=== PATIENT | female | born 1960 | race African-American/Black ===

== ENCOUNTER 2018-02-28 20:55 | Emergency (ER) | payer SELFPAY ==
[2018-02-28 21:02] VITALS: BP 172/99; PULSE 69; TEMP 98.7; BMI 29.5
--- NOTE | 2018-02-28 21:57 | PDOC ---
History of Present Illness - General History Source: Patient Exam Limitations: No Limitations - History of Present Illness Initial Comments: 02/28/18 22:20 The patient is a 57 year old female with a past medical history of acid reflux who presents to the ED with foot swelling since earlier today The patient reports bilateral foot swelling with radiation to her bilateral ankles since this morning. She reports achiness and warmth to her bilateral feet associated with present symptoms. She states she elevated her feet with relief of symptoms. Patient also reports an episode of shortness of breath while walking up the stairs that lasted for several seconds before resolving. Denies shortness of breath at rest. Denies pain or swelling to her proximal legs and knees. Denies chest pain. Denies fever or chills. Denies abdominal pain, nausea, vomiting, or diarrhea. Denies headache. Denies any other symptoms. <Raghav Anguiano - Last Filed: 02/28/18 22:45> <Sharla Burgos - Last Filed: 03/01/18 04:08> - General Chief Complaint: Edema Stated Complaint: BENJY LEG SWELLING Time Seen by Provider: 02/28/18 20:59 Past History <Raghav Anguiano - Last Filed: 02/28/18 22:45> - Past Medical History COPD: No GI Disorders: Yes (GERD) - Surgical History Abdominal Surgery: Yes (hernia) - Suicide/Smoking/Psychosocial Hx Smoking History: Current every day smoker Have you smoked in the past 12 months: Yes Number of Cigarettes Smoked Daily: 10 Information on smoking cessation initiated: Yes 'Breaking Loose' booklet given: 02/28/18 Hx Alcohol Use: No <Sharla Burgos - Last Filed: 03/01/18 04:08> - Past Medical History Allergies/Adverse Reactions: Allergies Allergy/AdvReac Type Severity Reaction Status Date / Time No Known Allergies Allergy Verified 02/28/18 20:56 Home Medications: Ambulatory Orders Omeprazole 40 mg PO DAILY 02/28/18 Review of Systems - Review of Systems Able to Perform ROS?: Yes Comments:: 02/28/18 22:20 CONSTITUTIONAL: Absent: fever, chills, diaphoresis, generalized weakness, malaise, loss of appetite HEENT: Absent: rhinorrhea, nasal congestion, throat pain, throat swelling, difficulty swallowing, mouth swelling, ear pain, eye pain, visual Changes CARDIOVASCULAR: Absent: chest pain, syncope, palpitations, irregular heart rate, lightheadedness , peripheral edema RESPIRATORY: Absent: cough, shortness of breath, dyspnea with exertion, orthopnea, wheezing, stridor, hemoptysis GASTROINTESTINAL: Absent: abdominal pain, abdominal distension, nausea, vomiting, diarrhea, constipation, melena, hematochezia GENITOURINARY: Absent: dysuria, frequency, urgency, hesitancy, hematuria, flank pain, genital pain MUSCULOSKELETAL: + foot swelling, foot pain, warmth to foot SKIN: Absent: rash, itching, pallor HEMATOLOGIC/IMMUNOLOGIC: Absent: easy bleeding, easy bruising, lymphadenopathy, frequent infections ENDOCRINE: Absent: unexplained weight gain, unexplained weight loss, heat intolerance, cold intolerance NEUROLOGIC: Absent: headache, focal weakness or paresthesias, dizziness, unsteady gait, seizure, mental status changes, bladder or bowel incontinence PSYCHIATRIC: Absent: anxiety, depression, suicidal or homicidal ideation, hallucinations. All Other Systems: Reviewed and Negative <Raghav Anguiano - Last Filed: 02/28/18 22:45> *Physical Exam - Vital Signs Last Vital Signs Temp Pulse Resp BP Pulse Ox 98.7 F 69 18 172/99 99 02/28/18 20:55 02/28/18 20:55 02/28/18 20:55 02/28/18 20:55 02/28/18 20:55 - Physical Exam Comments: 02/28/18 22:20 GENERAL: The patient is awake, alert, and fully oriented, in no acute distress. HEAD: Normal with no signs of trauma. EYES: Pupils equal, round and reactive to light, extraocular movements intact, sclera anicteric, conjunctiva clear with no pallor. ENT: Ears normal, nares patent, oropharynx clear without exudates. Moist mucous membranes. NECK: Normal range of motion, supple without lymphadenopathy, JVD, or masses. LUNGS: Breath sounds equal, clear to auscultation bilaterally. No wheeze/ crackles. HEART: Regular rate and rhythm, normal S1 and S2 without murmur or rub. ABDOMEN: Soft/nontender/nondistended. BS wnl. No guarding or rebound. No palpable masses. No hepatosplenomegaly. EXTREMITIES: Normal range of motion, no edema. No clubbing or cyanosis. No cords, erythema, or tenderness. NEUROLOGICAL: Cranial nerves II through XII grossly intact. Normal speech, normal gait. PSYCH: Normal mood, normal affect. SKIN: Warm, Dry, normal turgor, no rashes or lesions noted. <Raghav Anguiano - Last Filed: 02/28/18 22:45> - Vital Signs Last Vital Signs Temp Pulse Resp BP Pulse Ox 98.7 F 69 18 172/99 99 02/28/18 20:55 02/28/18 20:55 02/28/18 20:55 02/28/18 20:55 02/28/18 20:55 <Sharla Burgos - Last Filed: 03/01/18 04:08> Medical Decision Making - Medical Decision Making Documentation has been prepared under my direction and personally reviewed by me in its entirety. I attest that this documented accurately reflects all work, treatment, procedures and medical decision making performed by me. As noted above, this 57-year-old woman with a history of hypertension presents with 1 day history of bilateral foot swelling. 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 Today, she noted foot swelling as well as a small amount of ankle swelling. She denies pain either in the lower leg/calf or in the knee/thigh area. She noted improvement when she elevated her legs; in fact, as she was awaiting evaluation with her legs elevated on stretcher, she had no further edema noted. She denies chest pain or shortness of breath. No history of varicose veins. Physical exam as noted. Because patient has probably normal exam, including bilateral clear lung winter and no evidence of eye lateral lower extremity edema, clinical presentation most consistent with venous insufficiency. Patient asked if compression stockings/support hose would be advisable. Since she had very good response with leg elevation, compression of her legs during the day when she is on her feet may be helpful. Patient has been urged to follow up with her PMD: although she normally does not have shortness of breath or chest pain with exertion, today she had few minute episode of mild shortness of breath while climbing up stairs. She should return to the emergency room if she has persistent leg edema/leg pain or if she experiences persistent shortness of breath/chest pain with exertion <Sharla Burgos - Last Filed: 03/01/18 04:08> *DC/Admit/Observation/Transfer - Attestations Scribe Attestion: 02/28/18 22:20 Documentation prepared by Raghav Anguiano, acting as medical lab specialist for Sharla Burgos MD <Raghav Anguiano - Last Filed: 02/28/18 22:45> <Sharla Burgos - Last Filed: 03/01/18 04:08> Diagnosis at time of Disposition: Edema of lower extremity due to peripheral venous insufficiency - Discharge Dispostion Disposition: HOME Condition at time of disposition: Stable - Referrals Referrals: Memo Romero MD [Primary Care Provider] - - Patient Instructions Printed Discharge Instructions: Chronic Venous Insufficiency Additional Instructions: keep legs elevated as much as possible consider compression hosiery as discussed followup with within the next 5 days Return to ER immediately if you have persistent shortness of breath/chest pain - Post Discharge Activity
== END 2018-02-28 22:25 | disposition home or self-care (01) ==
LOC: FER 20:55
DX: I87.2 Venous insufficiency (chronic) (peripheral) (principal); M79.89 Other specified soft tissue disorders; I10 Essential (primary) hypertension
CPT/HCPCS: 99283-25

== ENCOUNTER 2019-10-22 10:06 | Emergency (ER) | payer OTHER ==
[2019-10-22 10:30] VITALS: BMI 28.3
--- NOTE | 2019-10-22 10:39 | PDOC ---
History of Present Illness - General Chief Complaint: Pain Stated Complaint: ABDOMINAL PAIN Time Seen by Provider: 10/22/19 10:34 History Source: Patient Exam Limitations: No Limitations - History of Present Illness Initial Comments: 10/23/19 07:27 59F PMH GERD presenting with 4 days of episodic right sided abdominal pain that she likens to her GERD symptoms. Coming in today bc sx not resolved but have no worsened. Endorses GE and constipation but making BMs and passing gas. Denies f/c, n/v, cough, congestion, cp/sob. Denies dysuria. Prior midline hernia repair. NKDA. Has been taking black seed bitter herbal supplements for the past month but has stopped. Current smoker; denies etoh. Past History - Past Medical History Allergies/Adverse Reactions: Allergies Allergy/AdvReac Type Severity Reaction Status Date / Time No Known Allergies Allergy Verified 02/28/18 20:56 Home Medications: Ambulatory Orders Omeprazole 40 mg PO DAILY 02/28/18 Ciprofloxacin [Cipro -] 500 mg PO Q12H #20 tablet 10/22/19 metroNIDAZOLE [Flagyl -] 500 mg PO TID #30 tablet 10/22/19 COPD: No GI Disorders: Yes (GERD) - Surgical History Abdominal Surgery: Yes (hernia) - Psycho Social/Smoking Cessation Hx Smoking History: Current every day smoker Have you smoked in the past 12 months: Yes Number of Cigarettes Smoked Daily: 10 Information on smoking cessation initiated: No 'Breaking Loose' booklet given: 02/28/18 Hx Alcohol Use: No Review of Systems - Review of Systems Able to Perform ROS?: Yes Comments:: 10/23/19 07:27 CONSTITUTIONAL: Denies F / C HEENT: Denies sore throat, rhinorrhea RESP: Denies SOB, cough, orthopnea, MICHELLE CARD: Denies chest pain, palpitations GI: Endorses abdominal pain, GE. Denies N / V / D, inability to tolerate PO : Denies dysuria SKIN: Denies rashes NEURO: Denies numbness, tingling, weakness MSK: Denies myalgias *Physical Exam - Vital Signs Last Vital Signs Temp Pulse Resp BP Pulse Ox 98.2 F 93 H 18 140/105 H 98 10/22/19 10:28 10/22/19 10:28 10/22/19 10:28 10/22/19 10:28 10/22/19 10:28 - Physical Exam 10/23/19 07:27 GEN: NAD, comfortable. AAOx3. HEENT: NC/AT, EOMI, PERRL. Normal voice. Supple neck w/ FROM. CV: S1/S2, RRR, no m/r/g LUNG: CTAB, no wheezes, crackles, rales, rhonchi. GI: +TTP RUQ / flank / periumbilical; soft, nd, +BS, no guarding, no rebound. No masses. Neg CVAT b/l. MSK:No LE edema. No obvious deformities of all extremities. SKIN: Warm, dry, no rashes appreciated. PSYCH: very anxious; became tearful at the thought of hospitalization; redirectable NEURO: Moving all extremities well. ED Treatment Course - LABORATORY CBC & Chemistry Diagram: 10/22/19 12:30 10/22/19 12:30 - RADIOLOGY Radiology Studies Ordered: Category Date Time Status CHEST X-RAY PORTABLE* [RAD] Stat Radiology 10/22/19 10:38 Ordered Medical Decision Making - Medical Decision Making 10/22/19 11:02 59F PMH GERD w/ 4 days of intermittent right sided abdominal pain w/ GE. No f/c, n/v. Passing stool and BM. Took a month course of black seed bitters supplement. +TTP RUQ / flank / periumbilical w/o guarding. neg CVAT. DDX likely biliary pathology vs hepatic injury, consider ACS, pancreatitis, appendicitis; less likely obstruction, colitis - advised against taking herbal supplements due to questionable safety profile - CBC, CMP, Cardiac, Lipase - UA, UC - CXR - EKG XX:XX HRXX, sinus rhythm, left axis, narrow QRS, QTc ___, no HAYLIE/D, flat T waves - RUQ US; consider CT A/P pending US results - fluids, tylenol 10/22/19 12:18 per pt daughter, pt had cholecystectomy could not visual GB on bedside US will CT A/P f/u labs 10/22/19 16:16 acute right sided diverticulitis on CT; uncomplicated, will give cipro and flagyl outpatient results d/w patient, amenable to plan. CT report provided DC home w/ abx, PCP f/u, RTP Discharge - Discharge Information Problems reviewed: Yes Clinical Impression/Diagnosis: Diverticulitis Condition: Stable Disposition: HOME - Admission No - Additional Discharge Information Prescriptions: Ciprofloxacin [Cipro -] 500 mg PO Q12H #20 tablet metroNIDAZOLE [Flagyl -] 500 mg PO TID #30 tablet - Follow up/Referral Referrals: Memo Romero MD [Primary Care Provider] - - Patient Discharge Instructions Patient Printed Discharge Instructions: DI for Diverticulitis Additional Instructions: You were found to have diverticulitis, a common infection involving your intestine. You were given your first dose of antibiotics in the Emergency Department. We have sent additional antibiotics to your pharmacy; please pick them up and take as directed. Pay attention to the dosing instructions - Metronidazole is THREE times a day while Ciprofloxacin is TWICE a day. Take tylenol as directed on the label if you experience pain. Eat and drink as tolerated but start slow. Avoid taking herbal supplements such as Black Seed Bitters. These supplements are not regulated and may be harmful to your health. Follow up with your Primary Care Doctor in 10 days. Return to the nearest Emergency Department if you experience worsening pain, fevers, bloody stool, or if you feel very ill. - Post Discharge Activity
[2019-10-22 10:44] VITALS: PULSE 82
[2019-10-22] MEDS ORDERED: SODIUM CHLORIDE 0.9% 500 ML INFUS.BAG IV ONE (11:00)
[2019-10-22] MEDS ORDERED: ACETAMINOPHEN 1000 MG/100 ML VIAL (NON FORMULARY) IVPB ONE (11:00)
[2019-10-22] MEDS ORDERED: ACETAMINOPHEN INJECTION 100 ML IVPB ONE (11:02)
--- NOTE | 2019-10-22 12:40 | PDOC ---
Documentation entered by Carlos Alberto Rivera SCRIBE, acting as scribe for Rusty Tate MD. Rusty Tate MD: This documentation has been prepared by the Miguel mcwilliams Nirvannie, SCRIBE, under my direction and personally reviewed by me in its entirety. I confirm that the documentation accurately reflects all work, treatment, procedures, and medical decision making performed by me. Attending Attestation - Resident Resident Name: Óscar Schneider - ED Attending Attestation I have performed the following: I have examined & evaluated the patient, The case was reviewed & discussed with the resident, I agree w/resident's findings & plan, Exceptions are as noted - HPI HPI: 10/22/19 11:29 The patient is a 59 year old female with a significant past medical history of GERD who presents to the ED with 4 days of intermittent, episodic right-sided abdominal pain. Patient notes associated with decreased PO intake, mild constipation. Patient notes to have been consuming black seed bitter over the course of the past month which she has since stopped. She denies the inability to pass gas. She denies chest pain or shortness of breath. Allergies: NKDA Primary Care Physician: Dr. Romero - Physicial Exam PE: 10/22/19 12:40 Vitals: Triage Vital signs reviewed General Appearance: No acute distress, well nourished well developed, Cardiac: Regular rate and rhythym, no murmurs, no rubs, no gallops, Lungs: Clear to auscultation bilateral, good air movement bilaterally, Abdomen: Soft, non distended, diffuse right-sided tenderness to palpation no rebound no guarding Extremities: Full range of motion to all extremities, no cyanosis, clubbing, or edema Skin: Warm and dry, no rashes or lesions, no rash, no petechiae Psych: Normal mood, normal affect - Medical Decision Making 10/22/19 11:29 59 year old female with a significant past medical history of GERD who presents to the ED with 4 days of intermittent, episodic right-sided abdominal pain. Plan is: CBC CMP Cardiac Profile Lipase UA/UC CXR EKG Ofirmev IV fluids Abdomen and Pelvis CT 10/22/19 16:16 CT demonstrates acute diverticulitis parent will discharge with Cipro Flagyl Findings, the need for follow-up and strict return instructions discussed with patient. Discharge - Discharge Information Problems reviewed: Yes Clinical Impression/Diagnosis: Diverticulitis Condition: Stable Disposition: HOME - Additional Discharge Information Prescriptions: Ciprofloxacin [Cipro -] 500 mg PO Q12H #20 tablet metroNIDAZOLE [Flagyl -] 500 mg PO TID #30 tablet - Follow up/Referral Referrals: Memo Romero MD [Primary Care Provider] - - Patient Discharge Instructions Patient Printed Discharge Instructions: DI for Diverticulitis Additional Instructions: You were found to have diverticulitis, a common infection involving your intestine. You were given your first dose of antibiotics in the Emergency Department. We have sent additional antibiotics to your pharmacy; please pick them up and take as directed. Pay attention to the dosing instructions - Metronidazole is THREE times a day while Ciprofloxacin is TWICE a day. Take tylenol as directed on the label if you experience pain. Eat and drink as tolerated but start slow. Avoid taking herbal supplements such as Black Seed Bitters. These supplements are not regulated and may be harmful to your health. Follow up with your Primary Care Doctor in 10 days. Return to the nearest Emergency Department if you experience worsening pain, fevers, bloody stool, or if you feel very ill. - Post Discharge Activity
[2019-10-22 13:10] LABS: BASO % 0.9 % (0-2.0); EOS % 0.8 % (0-4.5); HEMATOCRIT 40.4 % (32.4-45.2); HEMOGLOBIN 13.4 GM/dL (10.7-15.3); LYMPH % 32.4 % (8-40); MCH 27.9 pg (25.7-33.7); MEAN CELL VOLUME 84.5 fl (80-96); MEAN PLT VOLUME 8.2 fl (7.5-11.1); MONO % 8.8 % (3.8-10.2); NEUT % 57.1 % (42.8-82.8); PLATELET COUNT 287 K/MM3 (134-434); RBC 4.78 M/mm3 (3.60-5.2); RDW 14.2 % (11.6-15.6)
[2019-10-22 13:11] LABS: EPI CELLS 35 /uL (0-25.1); HYALINE CASTS 2 /uL (0-3.1); URINE APPEARANCE CLOUDY; URINE BACTERIA 571 /uL (0-1359); URINE BILIRUBIN NEGATIVE (NEGATIVE); URINE COLOR YELLOW; URINE GLUCOSE (UA) NEGATIVE (NEGATIVE); URINE KETONE NEGATIVE (NEGATIVE); URINE LEUK ESTERASE NEGATIVE (NEGATIVE); URINE NITRITE NEGATIVE (NEGATIVE); URINE PROTEIN TRACE (NEGATIVE); URINE RBC 19 /uL (0-23.9); URINE UROBILINOGEN 0.2 mg/dL (0.2-1.0); URINE WBC 15 /uL (0-25.8)
[2019-10-22 13:25] LABS: ALBUMIN 2.9 g/dl (3.4-5.0); ALK PHOS 91 U/L (45-117); ANION GAP 7 MMOL/L (8-16); BILIRUBIN,TOTAL 0.8 mg/dL (0.2-1); BLOOD UREA NITROGEN 11.1 mg/dL (7-18); CALCIUM 8.1 mg/dL (8.5-10.1); CHLORIDE 108 mmol/L (98-107); CO2 24 mmol/L (21-32); CREATININE 0.8 mg/dL (0.55-1.3); GLUCOSE,RANDOM 109 mg/dL (74-106); LIPASE 99 U/L (73-393); POTASSIUM 4.2 mmol/L (3.5-5.1); SGOT/AST 19 U/L (15-37); SGPT/ALT 25 U/L (13-61); SODIUM 139 mmol/L (136-145); TOT PROT 6.3 g/dl (6.4-8.2)
[2019-10-22 15:46] VITALS: BP 146/90; TEMP 98.1
[2019-10-22] MEDS ORDERED: CIPROFLOXACIN 500 MG TABLET (RESTRICTED TO ID) PO ONE (16:19)
[2019-10-22] MEDS ORDERED: metroNIDAZOLE 500 MG TABLET PO ONE (16:19)
[2019-10-22] MEDS ORDERED: metroNIDAZOLE 250 MG TABLET ONE (16:50)
--- NOTE | 2019-10-24 10:31 | EKG ---
Test Reason : Blood Pressure : / mmHG Vent. Rate : 089 BPM Atrial Rate : 089 BPM P-R Int : 154 ms QRS Dur : 070 ms QT Int : 390 ms P-R-T Axes : -01 -51 031 degrees QTc Int : 474 ms NORMAL SINUS RHYTHM LEFT AXIS DEVIATION NONSPECIFIC T WAVE ABNORMALITY ABNORMAL ECG Confirmed by MD RICH, NEELAM ([id number]) on 10/24/2019 10:31:25 AM Referred By: Confirmed By:NEELAM VILLANUEVA MD
== END 2019-10-22 17:10 | disposition home or self-care (01) ==
LOC: JER 10:06
PROC: 3E033GC Introduction of Other Therapeutic Substance into Peripheral Vein, Percutaneous Approach (ICD-10-PCS; principal; 2019-10-22)
DX: K57.92 Diverticulitis of intestine, part unspecified, without perforation or abscess without bleeding (principal)
CPT/HCPCS: 36415; 71045-TC-FY; 74177-TC; 80053; 81003; 82550; 83690; 84484; 85025; 87086; 93005; 93010; 96374; 99285-25; J0131; Q9967

== ENCOUNTER 2020-10-20 15:04 | Emergency (ER) | payer OTHER ==
[2020-10-20 15:09] VITALS: BP 129/71; PULSE 83; TEMP 97; BMI 33.7
== END 2020-10-20 16:16 | disposition home or self-care (01) ==
LOC: JER 15:04
DX: T50.B95A Adverse effect of other viral vaccines, initial encounter (principal)
CPT/HCPCS: 99281-25

== ENCOUNTER → 2020-11-15 | Day surgery (SDC) | payer OTHER ==
[2020-11-14 13:31] VITALS: BMI 33.7
[~2020-11-15] MED LIST: ACETAMINOPHEN 500 MG TABLET (FP) PO PRN; BACITRACIN 50,000 UNITS VIAL TP ONE; BUPIVACAINE HCL/PF 0.5% (5 MG/ML) 30 ML VIAL IJ ONE; BUPIVACAINE HCL/PF 0.5% (5MG/ML) 10 ML VIAL ONE; DEXAMETHASONE SOD PHOSPHATE 4 MG/1 ML VIAL NR ONE; DEXAMETHASONE SOD PHOSPHATE 4 MG/1 ML VIAL ONE; LIDOCAINE HCL 1%, 10 MG/ML (20ML VIAL) NR ONE; LIDOCAINE HCL 1%, 10 MG/ML (20ML VIAL) ONE; ceFAZolin SODIUM 1 GM VIAL IVPB ONE
[2020-11-15 13:31] VITALS: BP 129/80; PULSE 78; TEMP 97.5
== END | disposition home or self-care (01) ==
LOC: JASU-SURG 04:34
PROVIDERS: ATTEND Podiatrist
PROC: 0SRP0JZ Replacement of Right Toe Phalangeal Joint with Synthetic Substitute, Open Approach (ICD-10-PCS; principal; 2020-11-15 09:00)
DX: M20.41 Other hammer toe(s) (acquired), right foot (principal)
CPT/HCPCS: 73630-TC-RT-FY; 82962; 88304-TC; 88311-TC; 94760

== ENCOUNTER 2021-01-13 04:21 | Day surgery (SDC) | payer OTHER ==
[2021-01-08 17:12] VITALS: BMI 35.1
[2021-01-13] MEDS ORDERED: ePHEDrine SULFATE 50 MG/1 ML AMPULE ONE (07:08)
[2021-01-13] MEDS ORDERED: MIDAZOLAM HCL 2 MG/2 ML SINGLE DOSE VIAL ONE (07:08)
[2021-01-13] MEDS ORDERED: PROPOFOL 20 ML ONE ×5 (07:08→08:21)
[2021-01-13] MEDS ORDERED: DEXAMETHASONE SOD PHOSPHATE 4 MG/1 ML VIAL ONE ×2 (07:10→07:21)
[2021-01-13] MEDS ORDERED: ceFAZolin SODIUM 1 GM VIAL ONE ×2 (07:10→08:25)
[2021-01-13] MEDS ORDERED: ROCURONIUM BROMIDE 50 MG/5 ML SYRINGE ONE (07:12)
[2021-01-13] MEDS ORDERED: LIDOCAINE HCL 1%, 10 MG/ML (20ML VIAL) ONE (07:21)
[2021-01-13] MEDS ORDERED: BUPIVACAINE HCL/PF 0.5% (5MG/ML) 10 ML VIAL ONE (07:21)
[2021-01-13] MEDS ORDERED: LIDOCAINE HCL 1%, 10 MG/ML (20ML VIAL) INF ONE (08:07)
[2021-01-13] MEDS ORDERED: BUPIVACAINE HCL/PF 0.5% (5MG/ML) 10 ML VIAL IJ ONE ×2 (08:08→08:40)
[2021-01-13] MEDS ORDERED: LIDOCAINE HCL/PF 2% SDV 5ML VIAL ONE (08:16)
[2021-01-13] MEDS ORDERED: BENZOIN/ALOE VERA/STORAX/TOLU 58 ML BOTTLE ONE (08:29)
[2021-01-13] MEDS ORDERED: BACITRACIN 50,000 UNITS VIAL TP ONE (08:41)
[2021-01-13] MEDS ORDERED: DEXAMETHASONE 4 MG TABLET (FP) PO ONE (08:41)
[2021-01-13] MEDS ORDERED: KETOROLAC TROMETHAMINE 30 MG/1 ML VIAL ONE (08:43)
[2021-01-13 12:41] VITALS: BP 160/80; PULSE 52; TEMP 98
== END 2021-01-13 12:15 | disposition home or self-care (01) ==
LOC: JASU-SURG 04:21
PROVIDERS: ATTEND Podiatrist
PROC: 0SRN0JZ Replacement of Left Metatarsal-Phalangeal Joint with Synthetic Substitute, Open Approach (ICD-10-PCS; principal; 2021-01-13 07:30)
DX: M20.12 Hallux valgus (acquired), left foot (principal)
CPT/HCPCS: 73630-TC-LT; 82962; 88304-TC; 88311-TC; 94760

== ENCOUNTER 2021-04-06 13:23 | Emergency (ER) | payer OTHER ==
[2021-04-06 13:41] VITALS: BMI 77.4
[2021-04-06] MEDS ORDERED: MAG HYDROX/AL HYDROX/SIMETH 30 ML UNIT-DOSE CUP PO ONE (14:11)
[2021-04-06] MEDS ORDERED: SUCRALFATE 1 GM TABLET (FP) PO ONE (14:11)
[2021-04-06] MEDS ORDERED: ONDANSETRON 4 MG/2 ML VIAL IVPUSH ONE (14:11)
[2021-04-06] MEDS ORDERED: LACTATED RINGERS SOLUTION 1000 ML INFUS.BAG IV ONE (14:11)
[2021-04-06] MEDS ORDERED: FAMOTIDINE 20 MG/50 ML IVPB 20 MG/50 ML MG IVPB ONE ×2 (14:11→14:29)
[2021-04-06] MEDS ORDERED: ACETAMINOPHEN 1000 MG/100 ML VIAL (NON FORMULARY) IVPB ONE (14:11)
[2021-04-06] MEDS ORDERED: SUCRALFATE 1 GM TABLET (FP) ONE (14:28)
[2021-04-06] MEDS ORDERED: ACETAMINOPHEN INJECTION 100 ML IVPB ONE (14:29)
[2021-04-06] MEDS ORDERED: ONDANSETRON 4 MG/2 ML VIAL ONE (14:29)
[2021-04-06] MEDS ORDERED: MAG HYDROX/AL HYDROX/SIMETH 30 ML UNIT-DOSE CUP ONE (14:29)
[2021-04-06 15:04] LABS: BASO % 0.7 % (0-2.0); EOS % 0.7 % (0-4.5); HEMATOCRIT 41.9 % (32.4-45.2); HEMOGLOBIN 14.2 GM/dL (10.7-15.3); LYMPH % 30.6 % (8-40); MCH 27.8 pg (25.7-33.7); MCHC 33.9 g/dl (32.0-36.0); MEAN PLT VOLUME 7.7 fl (7.5-11.1); MONO % 5.6 % (3.8-10.2); NEUT % 62.4 % (42.8-82.8); PLATELET COUNT 314 10^3/uL (134-434); RBC 5.11 M/mm3 (3.60-5.2); RDW 14.5 % (11.6-15.6); WHITE BLOOD COUNT 7.2 K/mm3 (4.0-10.0)
[2021-04-06 15:30] LABS: CHLORIDE 105 mmol/L (98-107); SODIUM 137 mmol/L (136-145)
[2021-04-06 15:32] LABS: ALBUMIN 3.3 g/dl (3.4-5.0); ANION GAP 9 MMOL/L (8-16); BLOOD UREA NITROGEN 10.2 mg/dL (7-18); CALCIUM 8.5 mg/dL (8.5-10.1); CO2 24 mmol/L (21-32)
[2021-04-06 15:33] LABS: LIPASE 104 U/L (73-393)
[2021-04-06 15:34] LABS: GLUCOSE,RANDOM 116 mg/dL (74-106)
[2021-04-06 15:35] LABS: CREATININE 0.8 mg/dL (0.55-1.3); SGPT/ALT 272 U/L (13-61)
[2021-04-06 15:36] LABS: SGOT/AST 425 U/L (15-37)
[2021-04-06 15:37] LABS: TOT PROT 7.5 g/dl (6.4-8.2)
[2021-04-06 15:38] LABS: ALK PHOS 167 U/L (45-117)
[2021-04-06 17:10] LABS: CALCIUM 8.5 mg/dL (8.5-10.1)
[2021-04-06 17:11] LABS: ALBUMIN 3.2 g/dl (3.4-5.0); BLOOD UREA NITROGEN 9.1 mg/dL (7-18)
[2021-04-06 17:14] LABS: CREATININE 0.8 mg/dL (0.55-1.3)
[2021-04-06 17:15] LABS: BILIRUBIN,TOTAL 1.7 mg/dL (0.2-1); TOT PROT 6.8 g/dl (6.4-8.2)
[2021-04-06 19:02] VITALS: BP 149/84; PULSE 67; TEMP 98.4
== END 2021-04-06 19:08 | disposition left against medical advice (07) ==
LOC: JER 13:23
PROC: 3E033GC Introduction of Other Therapeutic Substance into Peripheral Vein, Percutaneous Approach (ICD-10-PCS; principal; 2021-04-06)
DX: R10.13 Epigastric pain (principal); K83.8 Other specified diseases of biliary tract
CPT/HCPCS: 36415; 71046-TC-FY; 76705-TC; 80053; 82550; 82553; 83690; 84484; 85025; 93005; 93010; 96365; 96375; 99285-25; J0131

== ENCOUNTER 2021-11-07 11:17 | Emergency (ER) | payer OTHER ==
[2021-11-07 11:41] VITALS: BP 170/88; PULSE 69; TEMP 97.7; BMI 35.1
[2021-11-07] MEDS ORDERED: ACETAMINOPHEN 500 MG TABLET (FP) PO ONE (12:31)
[2021-11-07] MEDS ORDERED: IBUPROFEN 600 MG TABLET (FP) PO ONE ×2 (12:31→12:36)
[2021-11-07] MEDS ORDERED: ACETAMINOPHEN 500 MG TABLET (FP) ONE (12:36)
== END 2021-11-07 13:26 | disposition home or self-care (01) ==
LOC: JERFT 11:17
DX: S69.92XA Unspecified injury of left wrist, hand and finger(s), initial encounter (principal); W23.0XXA Caught, crushed, jammed, or pinched between moving objects, initial encounter
CPT/HCPCS: 73140-TC-LT-FY; 99283-25

== ENCOUNTER 2022-07-10 16:10 | Emergency (ER) | payer OTHER ==
[2022-07-10 16:22] VITALS: BP 153/91; PULSE 64; RESP 18; TEMP 98.2; BMI 34.5
[2022-07-10] MEDS ORDERED: ACETAMINOPHEN 500 MG TABLET (FP) PO ONE (16:22)
[2022-07-10] MEDS ORDERED: ACETAMINOPHEN 500 MG TABLET (FP) ONE (16:53)
[2022-07-10 19:12] LABS: THROAT:GRP A STREP NOT DETECTED (NOTDETECTED)
== END 2022-07-10 17:42 | disposition home or self-care (01) ==
LOC: JERFT 16:10
DX: J02.9 Acute pharyngitis, unspecified (principal)
CPT/HCPCS: 0241U-QW; 87651; 99283-25

== ENCOUNTER 2022-07-11 19:03 | Emergency (ER) | payer OTHER ==
[2022-07-11 19:34] VITALS: BP 161/89; PULSE 50; RESP 18; TEMP 98.3; BMI 34.5
== END 2022-07-11 22:11 | disposition home or self-care (01) ==
LOC: JER 19:03 → JERFT 19:03
DX: K11.20 Sialoadenitis, unspecified (principal)
CPT/HCPCS: 99283-25

== ENCOUNTER 2022-11-11 10:15 | Emergency (ER) | payer OTHER ==
[2022-11-11 10:31] VITALS: BP 136/77; PULSE 71; RESP 20; TEMP 98.3; BMI 35.9
[2022-11-11] MEDS ORDERED: KETOROLAC TROMETHAMINE 30 MG/1 ML VIAL IM ONE (11:11)
[2022-11-11] MEDS ORDERED: valACYclovir HCL 1000 MG TABLET PO ONE (11:11)
[2022-11-11] MEDS ORDERED: valACYclovir HCL 500 MG TABLET (FP) ONE (11:31)
[2022-11-11] MEDS ORDERED: KETOROLAC TROMETHAMINE 30 MG/1 ML VIAL ONE (11:33)
== END 2022-11-11 11:41 | disposition home or self-care (01) ==
LOC: JERFT 10:15
PROC: 3E0233Z Introduction of Anti-inflammatory into Muscle, Percutaneous Approach (ICD-10-PCS; principal; 2022-11-11)
DX: M79.604 Pain in right leg (principal); R21 Rash and other nonspecific skin eruption; B02.9 Zoster without complications
CPT/HCPCS: 99284-25

== ENCOUNTER 2024-06-02 15:28 | Emergency (ER) | payer OTHER ==
[2024-06-02 15:41] VITALS: BP 172/110; PULSE 73; RESP 16; TEMP 98.3
[2024-06-02 15:42] VITALS: BMI 35.5
[2024-06-02] MEDS ORDERED: ACETAMINOPHEN 500 MG TABLET (FP) ONE (16:50)
[2024-06-02] MEDS: ACETAMINOPHEN 500 MG TABLET (FP) PO ONE (16:52)
[2024-06-02 18:26] LABS: PH,URINE 6.5 (5.0-8.0); URINE APPEARANCE CLEAR; URINE BILIRUBIN NEGATIVE (NEGATIVE); URINE COLOR YELLOW; URINE GLUCOSE (UA) 3+ (NEGATIVE); URINE KETONE NEGATIVE (NEGATIVE); URINE LEUK ESTERASE NEGATIVE (NEGATIVE); URINE NITRITE NEGATIVE (NEGATIVE); URINE PROTEIN NEGATIVE (NEGATIVE)
== END 2024-06-02 20:03 | disposition home or self-care (01) ==
LOC: JER 15:28
DX: R35.0 Frequency of micturition (principal); M54.50 Low back pain, unspecified
CPT/HCPCS: 81003; 82962; 87086; 99283-25

== ENCOUNTER 2024-10-09 21:38 | Emergency (ER) | payer OTHER ==
[2024-10-09 21:44] VITALS: BP 149/83; PULSE 63; RESP 18; TEMP 98.5; BMI 28.7
[2024-10-09] MEDS ORDERED: ACETAMINOPHEN 500 MG TABLET (FP) PO ONE (22:07)
[2024-10-09] MEDS ORDERED: KETOROLAC TROMETHAMINE 30 MG/1 ML VIAL ONE (22:47)
[2024-10-09] MEDS: KETOROLAC TROMETHAMINE 30 MG/1 ML VIAL IM ONE (22:57)
== END 2024-10-09 23:41 | disposition home or self-care (01) ==
LOC: JER 21:38
PROC: 3E0233Z Introduction of Anti-inflammatory into Muscle, Percutaneous Approach (ICD-10-PCS; principal; 2024-10-09)
DX: R68.84 Jaw pain (principal); K14.8 Other diseases of tongue; R22.0 Localized swelling, mass and lump, head; R29.810 Facial weakness
CPT/HCPCS: 70100-TC-FY; 99284-25